=== PATIENT | male | born 1965 | race Caucasian/White ===

== ENCOUNTER 2018-11-13 02:16 | Inpatient (IN) | payer OTHER ==
[2018-11-13] VITALS (7 sets, daily range): BP systolic 132–197; BP diastolic 74–119
[~2018-11-13] VITALS: Ht 165.1 cm; Wt 108.0 kg
--- NOTE | ~2018-11-13 | OP ---
[address] [address] OPERATIVE REPORT Name: REJI SANCHEZ Room: [address] IN M.R.#: [id number] Admission: 11/13/18 Attend Phys: Reji Munoz, Discharge: Date of : 63 Report #: [id number] THIS REPORT FOR: //name// CC: DUSTIN physician/PCP Reji Munoz DATE OF SERVICE: 11/15/2018 PREOPERATIVE DIAGNOSES: Left ureteral stone and left kidney stones. POSTOPERATIVE DIAGNOSES: Left ureteral stone and left kidney stones. PROCEDURE PERFORMED: Cystoscopy with left retrograde pyelogram, ureteroscopy, laser lithotripsy, and stent placement. SURGEON: Casey Packer MD ANESTHESIA: General. ESTIMATED BLOOD LOSS: Minimal. COMPLICATIONS: None. INDICATION FOR PROCEDURE: This is a 53-year-old gentleman who presented to the Emergency Room with an obstructing left distal ureteral stone. His options for management were discussed in detail. He elected to proceed with cystoscopy, left retrograde pyelogram, ureteroscopy, laser lithotripsy, and stent placement. The risks, benefits, and possible complications were explained in detail to the patient in the preoperative area. He has a chance to ask questions, which were answered to his satisfaction and he elected to proceed. DESCRIPTION OF PROCEDURE: After obtaining informed consent, the patient was taken to the operating room and placed in supine position. After adequate general anesthesia and IV antibiotics, he was prepped and draped in the dorsal lithotomy position. A 21-[place] Zealander cystoscope with 30-degree lens was introduced into the anterior urethra, which was normal caliber all the way down to the deep bulbar urethra where there was slight narrowing, but in the bulbar urethra easily passable with the scope. The prostate showed mild enlargement. Upon entering the bladder, the bladder was systematically inspected. There were no stones, tumors, or diverticula. The left ureteral orifice was identified. There appeared to be a calcific density at the UVJ, was attempted to be dislodged with the wire, but it could not be removed, so a Pollack catheter was passed alongside the stone and a retrograde pyelogram was performed. There was a large filling defect at estimated about 7-8 mm in the distal ureter, moderate proximal hydronephrosis. A wire was passed in retrograde fashion and rigid ureteroscopy was carried out into the distal ureter where a 7 [place] [address] OPERATIVE REPORT Name: REJI SANCHEZ Room: [address]#: [id number] Admission: 11/13/18 Attend Phys: Reji Munoz, Discharge: Date of : 63 Report #: [id number] identified. Using a 365 micron holmium laser fiber, the stone was fragmented in multiple tiny fragments. The larger fragments were basketed and retrieved atraumatically. Because of the patient's known stone in the upper pole of the kidney, flexible ureteroscopy was then carried out alongside the wire into the kidney. All the calyces were inspected. There was an 8 mm stone in the upper pole calyx. Using a 365 micron fiber, it was fragmented in multiple tiny fragments. The larger fragments were basketed and retrieved atraumatically through the ureter. No other sizable stone fragments were noted within the kidney. There were some small sand pieces, which were felt likely to pass easily. The ureter was inspected with removal of the ureteroscope. There was no evidence of any ureteral injury or stone fragments. A cystoscope was placed in the bladder and a 4.8 x 28 cm double-J stent was passed in retrograde fashion over the wire. Good coil was noted overlying the renal pelvis under fluoroscopy and a good coil was directly visualized in the bladder. The bladder was drained. The stone fragments were passed off the table and sent to lab for analysis. Uro-Jet was applied per urethra. There was small bleeding vessel at the bladder neck, which was cauterized with the Bugbee. Hemostasis was obtained. Then, Uro-Jet was applied per urethra. B and O suppository was placed per rectum. The patient was extubated and taken to Recovery Room in good condition. Plan is to follow up in 1-2 weeks for stent removal. By: [id number] Packer MD /roberto carlos
[2018-11-13 02:39] LABS: URINE BILIRUBIN NEGATIVE (Negative); URINE BLOOD 3+ (Negative); URINE CLARITY CLEAR; URINE COLOR YELLOW; URINE GLUCOSE-RANDOM NEGATIVE (Negative); URINE KETONES NEGATIVE (Negative); URINE LEUKOCYTES-REFLEX NEGATIVE (Negative); URINE NITRITE-REFLEX NEGATIVE (Negative); URINE PROTEIN NEGATIVE (Negative); URINE SPECIFIC GRAVITY 1.025 (1.005-1.030); URINE UROBILINOGEN 0.2 E.U./dl (0.2-1.0)
[2018-11-13 02:40] LABS: ABSOLUTE BASOPHILS 0.1 thou/uL (0.0-0.2); ABSOLUTE EOSINOPHILS 0.2 thou/uL (0.0-0.7); ABSOLUTE LYMPHOCYTES 1.8 thou/uL (0.8-5.3); ABSOLUTE MONOCYTES 0.9 thou/uL (0.0-1.2); ABSOLUTE NEUTROPHILS 8.2 thou/uL (1.6-8.1); BASOPHILS 0.7 %; EOSINOPHILS 1.7 %; HEMATOCRIT 48.3 % (42.0-52.0); HEMOGLOBIN 16.3 gm/dL (14.0-18.0); LYMPHOCYTES 15.9 %; MCH 29.5 pg (26.0-34.0); MCHC 33.8 g/dL (28.0-37.0); MCV 87.4 fL (80.0-100.0); MONOCYTES 7.7 %; MPV 9.4 fl. (7.2-11.1); NUCLEATED RBCS 0 /100WBC; PLATELET COUNT* 238 thou/uL (150-400); RBC 5.53 mil/uL (4.50-6.00); RDW-CV 13.6 % (10.5-14.5); WBC 11.1 thou/uL (4.0-11.0)
[2018-11-13 02:48] LABS: CALCIUM 9.1 mg/dL (8.5-10.1); CREATININE 1.2 mg/dL (0.6-1.3); POTASSIUM 4.3 mmol/L (3.5-5.1)
[2018-11-13 02:52] LABS: ALBUMIN 3.9 g/dL (3.4-5.0); TOTAL BILIRUBIN 0.2 mg/dL (<0.1-1.0); TOTAL PROTEIN 7.6 g/dL (6.4-8.2)
[2018-11-13 03:33] LABS: BACTERIA-REFLEX 1-9 Few /HPF (None Seen); CASTS None Seen /LPF (None Seen); CRYSTALS None Seen /LPF (None Seen); SQUAMOUS 0-3 Few /LPF (0-3); URINE WBC-REFLEX 0-5 Rare /HPF (0-5)
--- NOTE | 2018-11-13 09:02 | NUR ---
ASSUMED CARE OF PT THIS AM AROUND 0715- M/S STATUS IN PLACE AND MAINTAINED INDICATED- UPON ASSESSMENT PT NOTED TO BE RESTING IN BED- PT A&O X4- CONTINENT OF BOWEL AND BLADDER- UP AD-DEVYN IN ROOM, STEADY GAIT NOTED- LCTA, RESP EVEN AND UN-LABORED- VSS, O2 SAT 95% ON RA- ABD SOFT/ROUND/NON-TENDER, BS X 4 QUADS- BM REPORTED THIS AM- IV NOTED TO RIGHT AC INTACT, IVF INFUSSING PRESCIBED- CALLED THIS AM AND STATES SHE WILL SEE PT LATER THIS AFTERNOON, OKAY FOR DIET ORDER AT THIS TIME- PT RATE LEFT FLANK PAIN 09/05 THIS AM, PRN FENT GIVEN AT 0755; PT REPORTS MEDICATION TO BE EFFECTIVE- CALL LIGHT AND PERSONAL BELONGINGS WITH IN REACH- PT MAKES NEEDS KNOWN- ALL NEEDS MET AT THIS TIME-WCTM
--- NOTE | 2018-11-13 16:51 | NUR ---
PT CURRENTLY RESTING IN BED- M/S STATUS IN PLACE INDICATED- IV TO RIGHT AC INTACT, IVF INFUSSING PRESCIBED- GOOD PO INTAKE NOTED THIS SHIFT WITH MEASL- HYDROCODONE STARTED AND GIVEN X1 THIS SHIFT AT 1033- SCHEDULED TORADOL 30MG Q8 STARTED WITH DOSE GIVEN AT 1400- PT REPORTS MEDICATIONS TO BE EFFECTIVE- PT TO BE NPO PER UROLOGY AT MIDNIGHT FOR POSSIBLE INTERVENTIONS R/T KIDNEY STONE PAULA- PT MAKES NEEDS KNOWN- ALL NEEDS MET AT THIS TIME-WCTM
[2018-11-14 04:00] VITALS: BP 107/75
[2018-11-14 04:56] LABS: ABSOLUTE EOSINOPHILS 0.2 thou/uL (0.0-0.7); ABSOLUTE MONOCYTES 0.7 thou/uL (0.0-1.2); ABSOLUTE NEUTROPHILS 3.9 thou/uL (1.6-8.1); BASOPHILS 0.6 %; EOSINOPHILS 2.7 %; HEMATOCRIT 41.4 % (42.0-52.0); LYMPHOCYTES 29.5 %; MCH 29.3 pg (26.0-34.0); MCHC 33.4 g/dL (28.0-37.0); MCV 87.7 fL (80.0-100.0); MONOCYTES 10.2 %; NUCLEATED RBCS 0 /100WBC; PLATELET COUNT* 168 thou/uL (150-400); RBC 4.72 mil/uL (4.50-6.00); RDW-CV 13.4 % (10.5-14.5); WBC 6.9 thou/uL (4.0-11.0)
[2018-11-14 05:10] LABS: HEMOGLOBIN 13.8 gm/dL (14.0-18.0)
[2018-11-14 05:15] LABS: CALCIUM 7.7 mg/dL (8.5-10.1); CREATININE 1.2 mg/dL (0.6-1.3); MAGNESIUM 2.1 mg/dL (1.8-2.4); POTASSIUM 4.3 mmol/L (3.5-5.1)
--- NOTE | 2018-11-14 07:44 | NUR ---
VSS. SEE MAR. SEE CHARTING. HOURLY ROUNDING FOR SAFETY.
[2018-11-14 08:00] VITALS: BP 124/84
--- NOTE | 2018-11-14 11:58 | NUR ---
VSS, ASSUMED CARE IN THE AM, ASSESSMENT PERFORMED AND CHARTED, FALL PRECAUTIONS IN PLACE AND CALL LIGHT IN REACH, PT IS A&O4 AND UP AD DEVYN, HAS ON HIS LEFT LOWER BACKSIDE, PT IS MED-SURG STATUS, ON RA AND HIS GOAL IS TO WALK THE UNIT AND LOWER PAIN, WILL FOLLOW WITH PLAN OF CARE AND HOURLY ROUNDS.
--- NOTE | 2018-11-14 15:16 | NUR ---
SW met with pt to complete initial assessment, introduce self, and SW role. Pt alert, oriented, pleasant. Pt lives at home with his sister whom he was caring for as pt sister has cancer and recently had surgery. Pt is normally independent with ADLs and mobility. SW provided resources/referral list for community resources and financial assistance, finding a PCP, etc. [employer] also speaking with pt today. Pt interested in learing more about Medicaid. SW to continue to follow to assist with safe dc planning.
[2018-11-14 18:22] VITALS: BP 133/88
[2018-11-14 19:50] VITALS: BP 127/74
[2018-11-15 00:23] VITALS: BP 153/96
[2018-11-15 05:32] LABS: CALCIUM 7.9 mg/dL (8.5-10.1); CREATININE 1.1 mg/dL (0.6-1.3); POTASSIUM 4.2 mmol/L (3.5-5.1)
--- NOTE | 2018-11-15 05:42 | NUR ---
PT ALERT AND ORIENTED. VSS ON RA. UP AD DEVYN. ASSESSMENT DOCUMENTED. PAIN MED GIVEN THSI SHIFT. RELIEF NOTED. URINE STRAINED. SURGERY FOR STONE REMOVAL TODAY. CONSENT ALREADY SIGNED ON PRIOR SHIFT. IV WITH NS @150ML/HR. CALL LIGHT WITHIN REACH. HOURLY ROUNDINGS MADE. WILL CONTINUE TO MONITOR.
[2018-11-15 06:40] VITALS: BP 153/96
--- NOTE | 2018-11-15 06:48 | NUR ---
PT LEFT FOR SURGERY @ 0640. ALERT AND ORIENTED. 0900 IV ROCEPHINE TAKEN TO HOLDING AREA. PREOP CHECKLIST DONE. WILL CONTINUE TO MONITOR.
[2018-11-15] MEDS ORDERED: CIPRO500 MG PO (12:08)
[2018-11-15] MEDS ORDERED: FLOMAX0.4 MG PO (12:08)
[2018-11-15] MEDS ORDERED: NORCO 7.5-3251 EACH PO (12:08)
[2018-11-15] MEDS ORDERED: DOK PLUS TABLE1 EACH PO (12:08)
[2018-11-15 12:15] VITALS: BP 146/92
[2018-11-15] MEDS ORDERED: LEVSIN0.125 MG PO (17:04)
[2018-11-15] MEDS ORDERED: PYRIDIUM200 M2 PO (17:05)
[2018-11-15] MEDS ORDERED: NORCO 5-325 TA1 EAC1 PO (17:09)
[2018-11-15 17:19] VITALS: BP 146/92
--- NOTE | 2018-11-17 16:20 | CON ---
[address] [address] CONSULTATION Name: REJI SANCHEZ Room: [address] IN .R.#: [id number] Admission: 11/13/18 Attend Phys: Reji Munoz, Discharge: 11/15/18 Date of : 63 Report #: [id number] THIS REPORT FOR: //name// CC: DUSTIN physician/PCP Reji Munoz DATE OF SERVICE: 11/13/2018 UROLOGY CONSULTATION REASON FOR CONSULTATION: Left ureteral stone. HISTORY OF PRESENT ILLNESS: The patient is a 53-year-old male with no prior history of stones. He presented with a 2-3 day history of left flank pain. He has some nausea, but no vomiting. He denies fevers or chills. He has been urinating without difficulty. He was seen in the ER early this morning and a CT showed a 6 mm left mid ureteral obstructing stone. He also has bilateral nonobstructing stones. PAST MEDICAL HISTORY/ PAST SURGICAL HISTORY: Shoulder surgery and tobacco use. FAMILY HISTORY: Positive for hypertension. SOCIAL HISTORY: The patient is a smoker for many years. He denies alcohol use. MEDICATIONS AT HOME: Please see inpatient medical record, reviewed. ALLERGIES: None. REVIEW OF SYSTEMS: Twelve-point review of systems is performed and is negative except as noted above in the HPI. PHYSICAL EXAMINATION: VITAL SIGNS: Temperature is 37.3, pulse 73, respirations 19, blood pressure 154/97. GENERAL: He is on room air. He has been afebrile since admission. HEENT: Normocephalic, atraumatic. HEART: Regular. RESPIRATIONS: Unlabored. ABDOMEN: Soft, nondistended with tenderness in the left quadrants. BACK: He has left CVA tenderness, none on the right. GENITOURINARY: He has a normal phallus and testes. EXTREMITIES: Without edema. SKIN: Without lesions or rashes. LABORATORY DATA: His white count is 11.1, hemoglobin 16.3, platelets 238[place] [address] CONSULTATION Name: SANCHEZREJI Room: [address]#: [id number] Admission: 11/13/18 Attend Phys: Reji Munoz, Discharge: 11/15/18 Date of : 63 Report #: [id number] BUN and creatinine are normal at 15 and 1.2. Please see lab work for other details, but otherwise pretty unremarkable. Urinalysis showed some blood and bacteria on microscopic exam, but there were no white cells or nitrites. CT scan is reviewed and is as above per HPI. ASSESSMENT AND PLAN: Left mid ureteral obstructing stone and bilateral nonobstructing renal stones. The patient does not have insurance, so ESWL therapy is not an option. We discussed options of medical expulsive therapy versus ureteroscopy. He wants to proceed with ureteroscopy. We will make him n.p.o. after midnight and look at OR scheduling tomorrow. We reviewed the risks of procedure including but not limited to infection, bleeding, injury to the urethra, bladder, ureter, need for secondary procedures, stent pain, cardiopulmonary complications. He understands he may require more than one procedure to treat the stone if the stone is not accessible on the first ago. <ELECTRONICALLY SIGNED> By: Anabella Leigh MD 11/17/18 1620 [id number] Leigh MD /nt
== END 2018-11-15 17:43 | disposition home or self-care (01) | DRG 659 ==
LOC: M.ERS 02:16 → M.2W 03:59 → M.TBA-ER 03:59 → M.2W 04:27
PROVIDERS: Family Medicine; ADMIT Family Medicine
PROC: BT1F1ZZ Fluoroscopy of Left Kidney, Ureter and Bladder using Low Osmolar Contrast (ICD-10-PCS; principal; 2018-11-15)
PROC: 0TC18ZZ Extirpation of Matter from Left Kidney, Via Natural or Artificial Opening Endoscopic (ICD-10-PCS; principal; 2018-11-15)
PROC: 0T778DZ Dilation of Left Ureter with Intraluminal Device, Via Natural or Artificial Opening Endoscopic (ICD-10-PCS; principal; 2018-11-15)
DX: N13.2 Hydronephrosis with renal and ureteral calculous obstruction (principal); J96.01 Acute respiratory failure with hypoxia; J98.01 Acute bronchospasm; Z68.39 Body mass index [BMI] 39.0-39.9, adult; F17.210 Nicotine dependence, cigarettes, uncomplicated; E66.01 Morbid (severe) obesity due to excess calories; Z87.442 Personal history of urinary calculi; Z87.81 Personal history of (healed) traumatic fracture; Z82.49 Family history of ischemic heart disease and other diseases of the circulatory system